=== PATIENT | female | born 1930 | race Caucasian/White ===

== ENCOUNTER 2018-08-06 07:33 | Inpatient (IN) ==
[2018-08-06] MEDS ORDERED: ACETAMINOPHEN 325 MG TABLET PO ONE (08:02)
--- NOTE | 2018-08-06 08:20 | XRay Report ---
INDICATION: Tachycardia. Fever. TECHNIQUE: AP chest x-ray,portable upright COMPARISON: Chest x-rays dated 11/18/2016, 08/19/2012, 07/04/2004 FINDINGS:Lungs are negative. No parenchymal infiltrate or mass. Heart size and vascularity are normal. No pulmonary edema. No pulmonary congestion. Geraldine and mediastinum are negative. There is no pleural fluid. There is calcification of the thoracic aorta. IMPRESSION: No acute abnormality Interpreted and Authenticated by: Kwame Gill 08/06/18
[2018-08-06] MEDS ORDERED: cefTRIAXone 1 GM VIAL IV ONE (08:22)
--- NOTE | 2018-08-06 08:31 | Emergency Department Note ---
Fever HPI - General Chief Complaint: Fever Stated Complaint: fever, nausea Time Seen by Provider: 08/06/18 08:14 Source: patient, EMS Mode of arrival: EMS Limitations: no limitations - History of Present Illness HPI Narrative: This 87-year-old female comes in because of fever and some pain in her abdomen. She had shaking during the night. Temperature checked at home this morning by family member, son and/or [id number] was 101.9. cutting machine tender helper got 102. When she arrived here was 99.2. Was given additional acetaminophen. She has some dysuria that began last evening. Some frequency but this is chronic as well as urgency that is also chronic with occasional incontinence. Has had some nausea and vomiting and mild diarrhea and constipation but no hematochezia. REVIEW OF SYSTEMS: No chest pain No cough or shortness of breath Has some chronic back pain. She reports falling 3 weeks ago due to a passing out and woke up and could not figure out why she was on the floor. She had some injury to her right knee at that time but was able to walk. No headache but some weakness and dizziness Some anxiety symptoms but no depression. Has some grief because of being a and this past year. Some chronic fatigue. - Related Data Home Medications Medication Instructions Recorded Confirmed Aspirin [Carolyn Chewable Aspirin] 81 mg PO DAILY 11/14/16 11/18/16 Isosorbide Mononitrate [Monoket] 20 mg PO DAILY 11/14/16 11/18/16 Levobunolol 0.5% Ophth Drops 1 gtt OU BID 11/14/16 11/18/16 [Betagan 0.5% Ophth Drops] Levothyroxine Sodium [Tirosint] 25 mcg PO DAILY 11/14/16 07/09/18 Sertraline HCl [Zoloft] 25 mg PO DAILY 11/14/16 07/09/18 amLODIPine BESYLATE [Amlodipine 10 mg PO DAILY 11/14/16 07/09/18 Besylate] traZODone HCL [Trazodone HCl] 25 mg PO DAILY 11/14/16 11/18/16 Acetaminophen [Tylenol] 650 mg PO Q4HP PRN 07/09/18 07/09/18 Calcium Phosphate Trib/Vit D3 1 tab CHEWED DAILY 07/09/18 07/09/18 [Calcium + Vitamin D3 Gummies] Cholecalciferol (Vitamin D3) 2,000 unit PO DAILY 07/09/18 07/09/18 [Vitamin D] Lisinopril [Zestril] 20 mg PO DAILY 07/09/18 07/09/18 Naproxen (Pp) [Aleve 220Mg (Pp)] 220 mg PO DAILY 07/09/18 07/09/18 Psyllium Husk [Metamucil] 0.52 gm PO DAILY 07/09/18 07/09/18 Warfarin [Coumadin] 1 mg PO DAILY 07/09/18 07/09/18 Allergies Allergy/AdvReac Type Severity Reaction Status Date / Time povidone-iodine Allergy Severe Hives Verified 08/06/18 07:39 ciprofloxacin [From CIPRO] Allergy Unknown UNKNOWN Verified 08/06/18 07:39 codeine Allergy Unknown Unknown Verified 08/06/18 07:39 Penicillins Allergy Unknown Unknown Verified 08/06/18 07:39 Sulfa (Sulfonamide Allergy Unknown Unknown Verified 08/06/18 07:39 Antibiotics) lorazepam [From ATIVAN] AdvReac Unknown "SLEEPY" Verified 08/06/18 07:39 meperidine [From DEMEROL] AdvReac Unknown "I GO NUTS" Verified 08/06/18 07:39 rofecoxib [From VIOXX] AdvReac Unknown "MY KIDNEY Verified 08/06/18 07:39 SHUT DOWN" Fever PMH - Past Medical History [facility] Narrative: Medical History (Last Updated 08/06/18 @ 08:36 by Angelito Shaikh DO) Allergy to multiple antibiotics (Chronic) Hypothyroidism, acquired (Chronic) Hypertension (Chronic) History of diverticulitis (Acute) Labile hypertension (Resolved) Urinary tract infection (Resolved) Past Surgical History (Last Updated 08/06/18 @ 08:37 by Angelito Shaikh DO) S/P bilateral cataract extraction (Acute) S/P lumbar fusion (Acute) Family History (Last Updated 08/06/18 @ 08:36 by Angelito Shaikh DO) Other CAD (coronary artery disease) CVA (cerebral vascular accident) DVT (deep venous thrombosis) Medical history: Reports: chronic anticoagulation, DVT, hyperlipidemia, hypertension, hypothyroidism, pulmonary embolus, other (DIVERTICULITIS. PEPTIC ULCER DISEASE. HEART MURMUR.). Denies: cancer, CVA, renal disease Surgical history ED: Reports: back surgery (Lumbar fusions x2) Psychiatric history: Reports: anxiety. Denies: depression Family history: Reports: other (DVTs, CVAs, CAD.) - Social History smoking status: Former smoker Alcohol use: Reports: None Drug use: Reports: none. Denies: marijuana Physical Exam Limitations: no limitations General appearance: alert, in no apparent distress Head: atraumatic, normocephalic Eye: Present: normal appearance, EOMI, other (Evidence of intraocular lens implant with reflection shimmering.). Absent: scleral icterus, conjunctival injection ENT: normal oropharynx, mucous membranes moist, other (Retains the majority of her own teeth.) Neck: Present: trachea midline. Absent: lymphadenopathy, thyromegaly Chest: Present: symmetric chest wall rise Respiratory: Present: normal lung sounds bilaterally. Absent: respiratory dis tress, wheezes, stridor, accessory muscle use, prolonged expiratory phase Cardiovascular: Present: regular rate, normal rhythm, systolic murmur. Absent: diastolic murmur Type of murmur: systolic Location of murmur: RUSB, LUSB, LLSB, other Intensity of murmur: 2/6 Pitch of murmur: Medium Abdominal: Present: soft, tenderness. Absent: distention, guarding, rebound, rigidity, organomegaly, mass Abdominal tenderness: Present: RUQ (With mild splinting) Extremities: Present: other (Moderate to large ecchymoses along most of the right lower leg without major warmth or erythema or swelling.). Absent: pedal edema, pretibial edema, calf tenderness Back: Absent: CVA tenderness (R), CVA tenderness (L), spinous process tenderness Neurological: Present: alert, oriented X3 Psychiatric: Present: normal affect, normal mood Skin: Present: warm, dry Course Vital Signs Temperature 99.2 F H 08/06/18 07:35 Pulse Rate 122 H 08/06/18 07:35 Respiratory Rate 20 08/06/18 07:35 Blood Pressure 134/57 08/06/18 07:35 Pulse Oximetry (%) 92 08/06/18 07:35 Temperature 98.4 F 08/06/18 09:54 Pulse Rate 111 H 08/06/18 10:01 Respiratory Rate 24 H 06/25/19 10:01 Blood Pressure 110/47 08/06/18 10:01 Pulse Oximetry (%) 92 08/06/18 10:01 Fever - MDM Narrative Medical decision making narrative: 8:23 AM - meets sirs criteria with tachycardia and fever and abdominal pain. Multiple labs. Antibiotics were not available after cultures. These have already been obtained and so Rocephin ordered. She has multiple allergies to antibiotics. She has some right upper quadrant pain with a history of abdominal pain when she came in such that we will go ahead with CT scan of abdomen and pelvis. Labs include white count 5.0. Lactic acid comes back elevated at 3.0. Creatinine is 1.2. CT scan demonstrates mildly dilated gallbladder with some stones and ultrasound was recommended. This has been ordered. 11:05 AM - initial labs did not include an INR. She is on warfarin presumably due to history of multiple DVTs and PEs. INR added. 11:05 AM - patient's care is being assumed by Dr. Angulo because of change in shift. Ultrasound pending. Patient had a recent desaturation and weakness and hypotension related to getting up just to go to the bathroom and did not feel well. Additional fluids were ordered by Dr. Angulo. - Lab Data Lab results reviewed: Yes I reviewed the patient's lab results. Result diagrams: 08/06/18 07:50 08/06/18 07:50 Lab Results 08/06/18 08/06/18 08/06/18 Range/Units 07:50 07:50 07:50 WBC 6.0 (4.5-11.0) K/mcL RBC 3.83 L (4.00-5.20) M/mcL Hgb 12.2 (12.0-15.0) g/dL Hct 36.3 (36.0-48.0) % MCV 94.8 (80.0-100.0) fL MCH 31.9 (26.0-34.0) pg MCHC 33.7 (31.0-36.0) g/dL RDW 14.1 (11.5-14.5) % Plt Count 225 (140-440) K/mcL MPV 7.4 (7.4-10.4) fL Total Counted 100 Seg Neutrophils % 88 H (38-78) % Band Neutrophils % 7 (0-10) % Lymphocytes % 3 L (15-49) % Monocytes % (Manual) 2 (1-12) % Platelet Estimate Normal (NORMAL) RBC Morphology Normal (NORMAL) VBG Lactic Acid 3.0 H (0.5-2.0) mmol/L Sodium 137 (133-145) mmol/L Potassium 4.3 (3.3-5.1) mmol/L Chloride 103 (96-108) mmol/L Carbon Dioxide 21 L (22-30) mmol/L Anion Gap 13.0 (8-16) BUN 30 H (8-23) mg/dl Creatinine 1.2 H (0.6-1.1) mg/dl GFR Calculation 40 Glucose 86 (70-105) mg/dL Calcium 8.6 (8.6-10.4) mg/dl Total Bilirubin 0.7 (0.0-1.0) mg/dL AST 31 (0-37) U/l ALT 28 (0-40) U/l Alkaline Phosphatase 64 (39-117) U/L Total Protein 6.0 (5.9-8.4) gm/dL Albumin 3.4 (3.2-5.2) gm/dL Globulin 2.6 (2.2-3.7) gm/dL Albumin/Globulin Ratio 1.3 (1.0-2.3) Urine Color Urine Appearance Urine pH (5.0-9.0) Ur Specific [place] (1.000-1.035) Urine Protein (NEG) mg/dL Urine Glucose (UA) (NEG) mg/dL Urine Ketones (NEG) mg/dL Urine Occult Blood (<0.03) mg/dL Urine Nitrate (NEG) Urine Bilirubin (NEG) mg/dL Urine Urobilinogen (NEG) mg/dL Ur Leukocyte Esterase (NEG) /uL Urine RBC (0-1) /hpf Urine WBC (0-4) /hpf Ur Squamous Epith Cells (0-4) /hpf Urine Bacteria (0) /hpf Urine Mucus (0) /hpf Ur Culture Indicated? 08/06/18 Range/Units 07:50 WBC (4.5-11.0) K/mcL RBC (4.00-5.20) M/mcL Hgb (12.0-15.0) g/dL Hct (36.0-48.0) % MCV (80.0-100.0) fL MCH (26.0-34.0) pg MCHC (31.0-36.0) g/dL RDW (11.5-14.5) % Plt Count (140-440) K/mcL MPV (7.4-10.4) fL Total Counted Seg Neutrophils % (38-78) % Band Neutrophils % (0-10) % Lymphocytes % (15-49) % Monocytes % (Manual) (1-12) % Platelet Estimate (NORMAL) RBC Morphology (NORMAL) VBG Lactic Acid (0.5-2.0) mmol/L Sodium (133-145) mmol/L Potassium (3.3-5.1) mmol/L Chloride (96-108) mmol/L Carbon Dioxide (22-30) mmol/L Anion Gap (8-16) BUN (8-23) mg/dl Creatinine (0.6-1.1) mg/dl GFR Calculation Glucose (70-105) mg/dL Calcium (8.6-10.4) mg/dl Total Bilirubin (0.0-1.0) mg/dL AST (0-37) U/l ALT (0-40) U/l Alkaline Phosphatase (39-117) U/L Total Protein (5.9-8.4) gm/dL Albumin (3.2-5.2) gm/dL Globulin (2.2-3.7) gm/dL Albumin/Globulin Ratio (1.0-2.3) Urine Color Yellow Urine Appearance Clear Urine pH 6.0 (5.0-9.0) Ur Specific [place] 1.011 (1.000-1.035) Urine Protein 100 A (NEG) mg/dL Urine Glucose (UA) Negative (NEG) mg/dL Urine Ketones Neg (NEG) mg/dL Urine Occult Blood 0.2 A (<0.03) mg/dL Urine Nitrate Neg (NEG) Urine Bilirubin Neg (NEG) mg/dL Urine Urobilinogen Neg (NEG) mg/dL Ur Leukocyte Esterase Neg (NEG) /uL Urine RBC 40 H (0-1) /hpf Urine WBC 6 H (0-4) /hpf Ur Squamous Epith Cells < 1 (0-4) /hpf Urine Bacteria 0 (0) /hpf Urine Mucus Few (0) /hpf Ur Culture Indicated? No - Radiology Data Radiology results reviewed: Yes I reviewed the patient's radiology results. - EKG Data EKG results narrative: No acute coronary syndrome findings. Sinus tachycardia. Possible left atrial enlargement. This ECG will be read by a endless belt finisher. Disposition Pt seen by RESIDENT CARE COORDINATOR/PA only: No Clinical Impression: Sinus tachycardia, Allergy to multiple antibiotics, Chronic anticoagulation Fever Qualifiers: Fever type: due to other condition Qualified Code(s): R50.81 - Fever presenting with conditions classified elsewhere Abdominal pain Qualifiers: Abdominal location: right upper quadrant Qualified Code(s): R10.11 - Right upper quadrant pain Summary: See MEDICAL DECISION MAKING above. Disposition: Still a Patient Condition: Undetermined Referrals: Baltazar Marcum MD [Primary Care Provider] -
[2018-08-06] MEDS ORDERED: 0.9 % SODIUM CHLORIDE 1,000 ML IV ONE ×2 (08:32→11:03)
[2018-08-06 08:57] LABS: Hematocrit 36.3 % (36.0-48.0); Hemoglobin 12.2 g/dL (12.0-15.0); Mean Cell Volume 94.8 fL (80.0-100.0); Mean Corpuscular HGB Conc 33.7 g/dL (31.0-36.0); Mean Platelet Volume 7.4 fL (7.4-10.4); Platelet Count 225 K/mcL (140-440); RBC 3.83 M/mcL (4.00-5.20); Red Cell Distribution Width 14.1 % (11.5-14.5)
[2018-08-06 09:00] LABS: Appearance,Urine CLEAR; Bacteria,Urine 0 /hpf (0); Bilirubin,Urine NEG (NEG); Color,Urine YELLOW; Culture Indicated,Urine NO; Glucose,Urine (UA) NEGATIVE (NEG); Ketones,Urine NEG (NEG); Leukocyte Esterase,Urine NEG /uL (NEG); Mucus,Urine FEW /hpf (0); Nitrate,Urine NEG (NEG); Protein,Urine 100 mg/dL (NEG); Specific Gravity,Urine 1.011 (1.000-1.035); Urine Blood 0.2 mg/dL (<0.03); Urine RBC 40 /hpf (0-1); Urine Squamous Epithelial Cell < 1 /hpf (0-4); Urine WBC 6 /hpf (0-4); Urobilinogen,Urine NEG (NEG)
[2018-08-06 09:15] LABS: ALT/SGPT 28 U/l (0-40); AST/SGOT 31 U/l (0-37); Albumin 3.4 gm/dL (3.2-5.2); Albumin/Globulin Ratio 1.3 (1.0-2.3); Alkaline Phosphatase 64 U/L (39-117); Bilirubin,Total 0.7 mg/dL (0.0-1.0); Blood Urea Nitrogen 30 mg/dl (8-23); Calcium 8.6 mg/dl (8.6-10.4); Carbon Dioxide 21 mmol/L (22-30); Chloride 103 mmol/L (96-108); Globulin 2.6 gm/dL (2.2-3.7); Glomerular Filtration Rate 40; Glucose 86 mg/dL (70-105); Potassium 4.3 mmol/L (3.3-5.1); Sodium 137 mmol/L (133-145)
[2018-08-06 09:26] LABS: Band Neutrophils % 7 % (0-10); Lymphocytes % 3 % (15-49); Monocytes % (Manual) 2 % (1-12); Platelet Estimate NORMAL (NORMAL); RBC Morphology NORMAL (NORMAL); Segmented Neutrophils % 88 % (38-78)
--- NOTE | 2018-08-06 10:36 | Cat Scan Report ---
CLINICAL INFORMATION: Fever. Nausea. History of diverticulitis. COMPARISON: None. TECHNIQUE: Axial images were obtained through the abdomen and pelvis. Sagittally and coronally reformatted images. FINDINGS: Lung bases are negative. No parenchymal consolidation. No focal infiltrate or mass. There is no pleural fluid. There is no pericardial fluid. There is a small hiatal hernia. Liver is negative to the limits of noncontrast enhanced examination. No focal mass. Liver contour is smooth. Gallbladder is mildly distended. No definite gallbladder wall thickening or pericholecystic inflammatory change or fluid. There is probable cholelithiasis with a small calcified stone or stones. No dilated bile ducts. Spleen is negative. There is no splenomegaly. Pancreas is negative. No pancreatic mass. No peripancreatic abnormality. Left adrenal gland is somewhat convex without well-defined mass. There are probable hyperdense cysts in both kidneys. There are calcifications in the left kidney. These are probably vascular although nonobstructing mid pole stones are likely. There is no significant hydronephrosis. No evidence for solid mass. There is mild infiltration of the perirenal fat bilaterally. This is probably chronic. There is no perinephric abscess or acute fluid collection. There is no bladder calculus. There is diverticulosis. No evidence for diverticulitis. There is no focal colonic mass identified. No evidence for appendicitis. There is contrast material within small bowel. No mechanical small bowel obstruction. Uterus is not identified and has probably been removed. No adnexal abnormality. There is no free pelvic fluid. No pelvic abscess. There is no pneumoperitoneum. No biliary or portal venous gas. No lumbar compression fractures. There is multilevel degenerative disc disease. Patient has also undergone previous posterior spinal fusion. No sacral insufficiency fracture. Pelvis is negative. There is no fracture. There are multiple calcifications in the soft tissues of the gluteal regions bilaterally, right worse than left. These may be related to injections. There is extensive atherosclerotic calcification of the abdominal aorta. No infrarenal abdominal aortic aneurysm. IMPRESSION: 1. Mildly distended gallbladder and probable cholelithiasis. Gallbladder ultrasound may be helpful. 2. Left renal calcifications may be probably vascular. Nonobstructing calculi are suspected. There are hyperdense probable cyst. No hydronephrosis. 3. Extensive atherosclerotic disease 4. Diverticulosis without evidence for diverticulitis. No intra-abdominal abscess The exam was performed using radiation dose optimization techniques including, but not limited to, automated exposure control, adjustment of the mA and/or kV according to patient size and use of iterative reconstruction technique. Interpreted and Authenticated by: Kwame Gill 08/06/18
[2018-08-06 11:45] LABS: INR 2.9 (0.9-1.1); Prothrombin Time 30.2 sec (11.9-14.5)
--- NOTE | 2018-08-06 12:19 | Ultrasound Report ---
CLINICAL INFORMATION: Right upper quadrant pain TECHNIQUE: Grayscale and color flow Doppler spectral imaging COMPARISON: CT scan dated 08/06/2018 FINDINGS: There is biliary sludge and 2 probable gallstones. Gallstones measure 12 x 11 x 3 mm and 7 x 5 x 11 mm. No gallbladder wall thickening. No pericholecystic fluid. There is no positive Zamudio sign. No dilated bile ducts. No intrahepatic bile duct dilatation. Common bile duct measures 7 mm maximally that tapers. No detectable choledocholithiasis. Liver is negative. No focal hepatic mass. Liver contour is smooth. There is no ascites. Visualized portions of pancreas are negative IMPRESSION: 1. Small amount of biliary sludge and 2 mobile gallstones 2. No other abnormality Interpreted and Authenticated by: Kwame Gill 08/06/18
--- NOTE | 2018-08-06 13:01 | Emergency Department Note ---
General Adult HPI - General Chief complaint: Fever Stated complaint: fever, nausea Time Seen by Provider: 08/06/18 08:14 Source: patient, EMS Mode of arrival: EMS Limitations: no limitations - History of Present Illness HPI Narrative: Patient is checked out to me by Dr. Shaikh, outgoing ER doc at shift change. I reviewed his notes and studies available to me at that time - Related Data Home Medications Medication Instructions Recorded Confirmed Isosorbide Mononitrate [Monoket] 20 mg PO DAILY 11/14/16 11/18/16 Levothyroxine Sodium [Tirosint] 25 mcg PO DAILY 11/14/16 07/09/18 Sertraline HCl [Zoloft] 50 mg PO DAILY 11/14/16 07/09/18 Lisinopril [Zestril] 10 mg PO DAILY 07/09/18 07/09/18 Naproxen (Pp) [Aleve 220Mg (Pp)] 220 mg PO DAILY 07/09/18 07/09/18 Psyllium Husk [Metamucil] 2 cap PO DAILY 07/09/18 07/09/18 Warfarin [Coumadin] 6 mg PO DAILY 07/09/18 07/09/18 Acetaminophen [Tylenol Arthritis] 650 mg PO BID 08/06/18 08/06/18 Denosumab [Prolia] 60 mg SQ 08/06/18 Metoprolol Succinate 25 mg PO DAILY 08/06/18 08/06/18 Multivitamin [One Daily 1 each PO DAILY 08/06/18 08/06/18 Multivitamin] Netarsudil Mesylate [Rhopressa] 2.5 ml OP DAILY 08/06/18 08/06/18 Warfarin [Coumadin] 1 mg PO WEEKLY 08/06/18 08/06/18 amLODIPine BESYLATE [Norvasc] 10 mg PO DAILY 08/06/18 08/06/18 traZODone HCL [Trazodone HCl] 25 mg PO HSP PRN 08/06/18 08/06/18 Allergies Allergy/AdvReac Type Severity Reaction Status Date / Time povidone-iodine Allergy Severe Hives Verified 08/06/18 07:39 ciprofloxacin [From CIPRO] Allergy Unknown UNKNOWN Verified 08/06/18 07:39 codeine Allergy Unknown Unknown Verified 08/06/18 07:39 Penicillins Allergy Unknown Unknown Verified 08/06/18 07:39 Sulfa (Sulfonamide Allergy Unknown Unknown Verified 08/06/18 07:39 Antibiotics) lorazepam [From ATIVAN] AdvReac Unknown "SLEEPY" Verified 08/06/18 07:39 meperidine [From DEMEROL] AdvReac Unknown "I GO NUTS" Verified 08/06/18 07:39 rofecoxib [From VIOXX] AdvReac Unknown "MY KIDNEY Verified 08/06/18 07:39 SHUT DOWN" Past Medical History - Past Medical History Medical history: Reports: chronic anticoagulation, DVT, hyperlipidemia, hypertension, hypothyroidism, pulmonary embolus, other (DIVERTICULITIS. PEPTIC ULCER DISEASE. HEART MURMUR.). Denies: cancer, CVA, renal disease Psychiatric history: Reports: anxiety. Denies: depression Surgical history ED: Reports: back surgery (Lumbar fusions x2) - Social History smoking status: Former smoker Alcohol use: Reports: None Drug use: Reports: none. Denies: marijuana Physical Exam Limitations: no limitations General appearance: alert, in no apparent distress Course Vital Signs Temperature 99.2 F H 08/06/18 07:35 Pulse Rate 122 H 08/06/18 07:35 Respiratory Rate 20 08/06/18 07:35 Blood Pressure 134/57 08/06/18 07:35 Pulse Oximetry (%) 92 08/06/18 07:35 Temperature 101.8 F H 08/06/18 11:00 Pulse Rate 102 H 08/06/18 12:31 Respiratory Rate 24 H 08/06/18 12:31 Blood Pressure 95/45 08/06/18 12:31 Pulse Oximetry (%) 92 08/06/18 12:31 Medical Decision Making - Lab Data Lab results reviewed: Yes I reviewed the patient's lab results. Result diagrams: 08/06/18 07:50 08/06/18 07:50 Lab Results 08/06/18 08/06/18 08/06/18 Range/Units 07:50 07:50 07:50 WBC 6.0 (4.5-11.0) K/mcL RBC 3.83 L (4.00-5.20) M/mcL Hgb 12.2 (12.0-15.0) g/dL Hct 36.3 (36.0-48.0) % MCV 94.8 (80.0-100.0) fL MCH 31.9 (26.0-34.0) pg MCHC 33.7 (31.0-36.0) g/dL RDW 14.1 (11.5-14.5) % Plt Count 225 (140-440) K/mcL MPV 7.4 (7.4-10.4) fL Total Counted 100 Seg Neutrophils % 88 H (38-78) % Band Neutrophils % 7 (0-10) % Lymphocytes % 3 L (15-49) % Monocytes % (Manual) 2 (1-12) % Platelet Estimate Normal (NORMAL) RBC Morphology Normal (NORMAL) PT (11.9-14.5) sec INR (0.9-1.1) VBG Lactic Acid 3.0 H (0.5-2.0) mmol/L Sodium 137 (133-145) mmol/L Potassium 4.3 (3.3-5.1) mmol/L Chloride 103 (96-108) mmol/L Carbon Dioxide 21 L (22-30) mmol/L Anion Gap 13.0 (8-16) BUN 30 H (8-23) mg/dl Creatinine 1.2 H (0.6-1.1) mg/dl GFR Calculation 40 Glucose 86 (70-105) mg/dL Calcium 8.6 (8.6-10.4) mg/dl Total Bilirubin 0.7 (0.0-1.0) mg/dL AST 31 (0-37) U/l ALT 28 (0-40) U/l Alkaline Phosphatase 64 (39-117) U/L Total Protein 6.0 (5.9-8.4) gm/dL Albumin 3.4 (3.2-5.2) gm/dL Globulin 2.6 (2.2-3.7) gm/dL Albumin/Globulin Ratio 1.3 (1.0-2.3) Urine Color Urine Appearance Urine pH (5.0-9.0) Ur Specific [place] (1.000-1.035) Urine Protein (NEG) mg/dL Urine Glucose (UA) (NEG) mg/dL Urine Ketones (NEG) mg/dL Urine Occult Blood (<0.03) mg/dL Urine Nitrate (NEG) Urine Bilirubin (NEG) mg/dL Urine Urobilinogen (NEG) mg/dL Ur Leukocyte Esterase (NEG) /uL Urine RBC (0-1) /hpf Urine WBC (0-4) /hpf Ur Squamous Epith Cells (0-4) /hpf Urine Bacteria (0) /hpf Urine Mucus (0) /hpf Ur Culture Indicated? 08/06/18 08/06/18 Range/Units 07:50 07:50 WBC (4.5-11.0) K/mcL RBC (4.00-5.20) M/mcL Hgb (12.0-15.0) g/dL Hct (36.0-48.0) % MCV (80.0-100.0) fL MCH (26.0-34.0) pg MCHC (31.0-36.0) g/dL RDW (11.5-14.5) % Plt Count (140-440) K/mcL MPV (7.4-10.4) fL Total Counted Seg Neutrophils % (38-78) % Band Neutrophils % (0-10) % Lymphocytes % (15-49) % Monocytes % (Manual) (1-12) % Platelet Estimate (NORMAL) RBC Morphology (NORMAL) PT 30.2 H (11.9-14.5) sec INR 2.9 H (0.9-1.1) VBG Lactic Acid (0.5-2.0) mmol/L Sodium (133-145) mmol/L Potassium (3.3-5.1) mmol/L Chloride (96-108) mmol/L Carbon Dioxide (22-30) mmol/L Anion Gap (8-16) BUN (8-23) mg/dl Creatinine (0.6-1.1) mg/dl GFR Calculation Glucose (70-105) mg/dL Calcium (8.6-10.4) mg/dl Total Bilirubin (0.0-1.0) mg/dL AST (0-37) U/l ALT (0-40) U/l Alkaline Phosphatase (39-117) U/L Total Protein (5.9-8.4) gm/dL Albumin (3.2-5.2) gm/dL Globulin (2.2-3.7) gm/dL Albumin/Globulin Ratio (1.0-2.3) Urine Color Yellow Urine Appearance Clear Urine pH 6.0 (5.0-9.0) Ur Specific [place] 1.011 (1.000-1.035) Urine Protein 100 A (NEG) mg/dL Urine Glucose (UA) Negative (NEG) mg/dL Urine Ketones Neg (NEG) mg/dL Urine Occult Blood 0.2 A (<0.03) mg/dL Urine Nitrate Neg (NEG) Urine Bilirubin Neg (NEG) mg/dL Urine Urobilinogen Neg (NEG) mg/dL Ur Leukocyte Esterase Neg (NEG) /uL Urine RBC 40 H (0-1) /hpf Urine WBC 6 H (0-4) /hpf Ur Squamous Epith Cells < 1 (0-4) /hpf Urine Bacteria 0 (0) /hpf Urine Mucus Few (0) /hpf Ur Culture Indicated? No - Radiology Data Radiology results reviewed: Yes I reviewed the patient's radiology results. Ultrasound shows several gallstones but no thickened gallbladder wall or dilated common bile duct-there is no evidence of cholecystitis at this time CT scan shows no evidence of diverticulitis or other concerning feature to explain her abdominal pain - EKG Data EKG #1 EKG attestation: Yes I reviewed and interpreted this EKG. EKG results narrative: Sinus tachycardia without evidence of ischemia is noted Disposition Pt seen by ENGLISH HORN PLAYER/PA only: No Clinical Impression: Sinus tachycardia, Allergy to multiple antibiotics, Chronic anticoagulation Abdominal pain Qualifiers: Abdominal location: right upper quadrant Qualified Code(s): R10.11 - Right upper quadrant pain Sepsis Qualifiers: Sepsis type: sepsis due to unspecified organism Qualified Code(s): A41.9 - Sepsis, unspecified organism UTI (urinary tract infection) Qualifiers: Urinary tract infection type: acute cystitis Hematuria presence: with hematuria Qualified Code(s): N30.01 - Acute cystitis with hematuria Summary: After receiving patient in checkout I discussed with nursing staff. Patient does meet sepsis criteria with borderline hypotension requiring fluid resuscitation, febrile and sinus tachycardia. She had already had blood cultures and Rocephin started She ended up getting 3 bags of normal saline to get her blood pressure in the low normal range After getting her studies back-that is ultrasound and CT scan-I discussed case with Dr. Haley, our hospitalist, who agreed to accept the patient for further care and evaluation in the hospital. I also took the time to discuss this with the patient and her family. Disposition: Xfer As Inpt ([facility]) Condition: Critical Referrals: Baltazar Marcum MD [Primary Care Provider] -
--- NOTE | 2018-08-06 13:23 | Internal Med History&Physical ---
Medical - H&P: [facility] Patient information: Note initiated : 08/06/18 at 1:19 pm Service Date, if different from initiated Date: [] Patient: Sadi Her 87 y/o F admitted on for fever, nausea. Chief Complaint: [] History of present illness: Ms. Her is a 87 year old F Who presents the ED with shaking fever chills during the night vague abdominal discomfort. Patient states that over the past 3 weeks especially yesterday she had become more weak and developed fevers with shaking chills. She had some nausea. She has some abdominal achy discomfort, not pain per the patient, in the upper quadrants. States she fell about 3 weeks ago onto her right knee Denies any sick contacts denies any respiratory complaints denies any diarrhea other than one episode in the ED, her bowel vomit earlier this morning was soft to firm. She does complain of dysuria. In the ED she was tachycardic and tachypneic and developed hypotension when she got up to go the bathroom. She was febrile. No respiratory issues and chest x- ray was okay. Abdominal injury imaging including CT abdomen pelvis and ultrasound showed some gallstones but no cholecystitis and no other abdominal pathology that was acute. She is given 3 L of IV fluid between EMS in the ED. Last blood pressure is 111/46. The lowest was 84/41. She denies any ulcers or wounds on her skin. Review of Systems: Pertinent positives as above. Denies headache/vomiting/chest pain/cough/dyspnea/diarrhea. Many 10 point review of system reviewed negative Medical - H&P: PM Medical history: Medical History (Last Updated 08/06/18 @ 09:34 by Angelito Shaikh DO) Chronic anticoagulation (Acute) Allergy to multiple antibiotics (Chronic) Hypothyroidism, acquired (Chronic) Hypertension (Chronic) History of diverticulitis (Acute) Labile hypertension (Resolved) Urinary tract infection (Resolved) Past Surgical History (Last Updated 08/06/18 @ 08:37 by Angelito Shaikh DO) S/P bilateral cataract extraction (Acute) S/P lumbar fusion (Acute) Family History (Last Updated 08/06/18 @ 08:36 by Angelito Shaikh DO) Other CAD (coronary artery disease) CVA (cerebral vascular accident) DVT (deep venous thrombosis) Social History Patient quit smoking in 1991, does not drink alcohol, uses a walker to ambulate, lives by herself Medical - H&P: Meds Home Medications Medication Instructions Recorded Confirmed Type Isosorbide Mononitrate [Monoket] 20 mg PO DAILY 11/14/16 08/06/18 History Levothyroxine Sodium [Tirosint] 25 mcg PO DAILY 11/14/16 08/06/18 History Sertraline HCl [Zoloft] 50 mg PO DAILY 11/14/16 08/06/18 History Lisinopril [Zestril] 10 mg PO DAILY 07/09/18 08/06/18 History Naproxen (Pp) [Aleve 220Mg (Pp)] 220 mg PO DAILY 07/09/18 08/06/18 History Psyllium Husk [Metamucil] 2 cap PO DAILY 07/09/18 08/06/18 History Warfarin [Coumadin] 6 mg PO DAILY 07/09/18 08/06/18 History Acetaminophen [Tylenol Arthritis] 650 mg PO BID 08/06/18 08/06/18 History Denosumab [Prolia] 60 mg SQ UD 08/06/18 08/06/18 History Metoprolol Succinate 25 mg PO DAILY 08/06/18 08/06/18 History Multivitamin [One Daily 1 each PO DAILY 08/06/18 08/06/18 History Multivitamin] Netarsudil Mesylate [Rhopressa] 2.5 ml OP HS 08/06/18 08/06/18 History Warfarin [Coumadin] 1 mg PO WEEKLY 08/06/18 08/06/18 History amLODIPine BESYLATE [Norvasc] 10 mg PO DAILY 08/06/18 08/06/18 History traZODone HCL [Trazodone HCl] 25 mg PO HSP PRN 08/06/18 08/06/18 History Allergies Allergy/AdvReac Type Severity Reaction Status Date / Time povidone-iodine Allergy Severe Hives Verified 08/06/18 07:39 ciprofloxacin [From CIPRO] Allergy Unknown UNKNOWN Verified 08/06/18 07:39 codeine Allergy Unknown Unknown Verified 08/06/18 07:39 Penicillins Allergy Unknown Unknown Verified 08/06/18 07:39 Sulfa (Sulfonamide Allergy Unknown Unknown Verified 08/06/18 07:39 Antibiotics) lorazepam [From ATIVAN] AdvReac Unknown "SLEEPY" Verified 08/06/18 07:39 meperidine [From DEMEROL] AdvReac Unknown "I GO NUTS" Verified 08/06/18 07:39 rofecoxib [From VIOXX] AdvReac Unknown "MY KIDNEY Verified 08/06/18 07:39 SHUT DOWN" Medical - H&P: Exam - Constitutional Vitals: Temp Pulse Resp BP Pulse Ox 101.8 F H 108 H 18 111/46 95 08/06/18 11:00 08/06/18 12:46 08/06/18 12:46 08/06/18 12:46 08/06/18 12:46 Exam: General: Alert, Awake, No acute Distress Eyes/N/T: EOMI, PEERL, DMM Head/Neck: neck supple, normocephalic atraumatic CV: Mildly tacky but regular, No murmurs, Pulm: Clear b/l, no wheezing/rhonchi/rales Abd: soft, nontender, +BS x4 Ext: no clubbing/cyanosis/edema Neuro: Alert, no focal deficits, moves all extremities, CN 2-12 grossly intact, symmetrical strength b/l upper/lower, sensations intact b/l upper/lower Skin: warm/dry Medical - H&P: Reslt - Labs CBC & Chem 7: 08/06/18 07:50 08/06/18 07:50 Labs: Short CBC 08/06/18 Range/Units 07:50 WBC 6.0 (4.5-11.0) K/mcL Hgb 12.2 (12.0-15.0) g/dL Hct 36.3 (36.0-48.0) % Plt Count 225 (140-440) K/mcL BMP 08/06/18 07:50 Sodium 137 Potassium 4.3 Chloride 103 Carbon Dioxide 21 L BUN 30 H Creatinine 1.2 H Glucose 86 Calcium 8.6 Liver Function 08/06/18 Range/Units 07:50 Total Bilirubin 0.7 (0.0-1.0) mg/dL AST 31 (0-37) U/l ALT 28 (0-40) U/l Alkaline Phosphatase 64 (39-117) U/L Albumin 3.4 (3.2-5.2) gm/dL Urine 06/25/19 Range/Units 07:50 Urine Color Yellow Urine Appearance Clear Urine pH 6.0 (5.0-9.0) Ur Specific [place] 1.011 (1.000-1.035) Urine Protein 100 A (NEG) mg/dL Urine Glucose (UA) Negative (NEG) mg/dL - Impressions CT abdomen pelvis and ultrasound showed gallstones but no cholecystitis no other abdominal pathology. 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
[2018-08-06] MEDS ORDERED: ONDANSETRON 4 MG/2 ML VIAL IV PRN (14:27)
[2018-08-06] MEDS ORDERED: MAGNESIUM SULFATE 2 GM/50 ML BAG IV PRN (14:27)
[2018-08-06] MEDS ORDERED: WARFARIN 1 MG TABLET PO SCH (14:27)
[2018-08-06] MEDS ORDERED: IPRATROPIUM/ALBUTEROL 3 ML AMPUL.NEB NEB PRN (14:27)
[2018-08-06] MEDS ORDERED: LACTULOSE 20 GM/30 ML ORAL.SOL PO PRN (14:27)
[2018-08-06] MEDS ORDERED: POTASSIUM CHLORIDE 40 MEQ in DEXTROSE 5% IN WATER 500 ML IV PRN (14:27)
[2018-08-06] MEDS ORDERED: SENNOSIDES 1 TABLET PO PRN (14:27)
[2018-08-06] MEDS ORDERED: POTASSIUM CHLORIDE 20 MEQ TABLET PO PRN ×2 (14:27)
[2018-08-06] MEDS ORDERED: POLYETHYLENE GLYCOL 3350 17 GM PACKET PO PRN (14:27)
[2018-08-06] MEDS ORDERED: METOCLOPRAMIDE 10 MG/2 ML VIAL IV PRN (14:27)
[2018-08-06] MEDS ORDERED: WARFARIN 4 MG TABLET PO ONE (15:00)
[2018-08-06] MEDS: CEFEPIME 2 GM VIAL IV SCH ×2 (15:44→23:47)
[2018-08-06] MEDS: 0.9 % SODIUM CHLORIDE 10 ML SYRINGE IV SCH ×2 (15:45→23:48)
[2018-08-06] MEDS: ACETAMINOPHEN 325 MG TABLET PO PRN (17:18)
[2018-08-06] MEDS ORDERED: SERTRALINE 50 MG TABLET PO STA (18:38)
[2018-08-06] MEDS: DOCUSATE SODIUM 100 MG CAPSULE PO SCH (19:23)
[2018-08-07] MEDS: 0.9 % SODIUM CHLORIDE 10 ML SYRINGE IV SCH ×3 (04:12→21:28)
[2018-08-07 06:03] LABS: Hematocrit 33.9 % (36.0-48.0); Hemoglobin 11.3 g/dL (12.0-15.0); Mean Cell Volume 96.3 fL (80.0-100.0); Mean Corpuscular HGB Conc 33.3 g/dL (31.0-36.0); Mean Platelet Volume 7.9 fL (7.4-10.4); Platelet Count 203 K/mcL (140-440); RBC 3.52 M/mcL (4.00-5.20); Red Cell Distribution Width 14.1 % (11.5-14.5)
[2018-08-07 06:14] LABS: INR 2.9 (0.9-1.1); Prothrombin Time 29.9 sec (11.9-14.5)
[2018-08-07 06:42] LABS: ALT/SGPT 23 U/l (0-40); AST/SGOT 35 U/l (0-37); Albumin 3.2 gm/dL (3.2-5.2); Albumin/Globulin Ratio 1.2 (1.0-2.3); Alkaline Phosphatase 39 U/L (39-117); Bilirubin,Direct < 0.2 mg/dL (0.0-0.3); Bilirubin,Total 0.4 mg/dL (0.0-1.0); Blood Urea Nitrogen 31 mg/dl (8-23); Carbon Dioxide 19 mmol/L (22-30); Chloride 103 mmol/L (96-108); Globulin 2.7 gm/dL (2.2-3.7); Glomerular Filtration Rate 44; Glucose 81 mg/dL (70-105); Lactate Dehydrogenase 220 U/L (94-250); Magnesium 1.9 mg/dL (1.6-2.5); Phosphorous 2.4 mg/dL (2.7-4.5); Potassium 4.1 mmol/L (3.3-5.1); Sodium 137 mmol/L (133-145); Triglycerides 127 mg/dl (<150); Uric Acid 7.8 mg/dL (2.5-8.0)
[2018-08-07 06:43] LABS: C-Reactive Protein 31.9 mg/dl (0.0-0.8)
--- NOTE | 2018-08-07 07:11 | Internal Med Progress Note ---
Medical - PN: Subj Patient information: Note initiated : 08/07/18 at 7:03 am Service Date, if different from initiated Date: [] Patient: Sadi Her 87 y/o F admitted on 08/06/18 for fever, nausea. Chief Complaint: [] Interval history: Ms. Her is a 87 year old F Who presents the ED with shaking fever chills during the night vague abdominal discomfort. Patient states that over the past 3 weeks especially yesterday she had become more weak and developed fevers with shaking chills. She had some nausea. She has some abdominal achy discomfort, not pain per the patient, in the upper quadrants. States she fell about 3 weeks ago onto her right knee Denies any sick contacts denies any respiratory complaints denies any diarrhea other than one episode in the ED, her bowel vomit earlier this morning was soft to firm. She does complain of dysuria. In the ED she was tachycardic and tachypneic and developed hypotension when she got up to go the bathroom. She was febrile. No respiratory issues and chest x- ray was okay. Abdominal injury imaging including CT abdomen pelvis and ultrasound showed some gallstones but no cholecystitis and no other abdominal pathology that was acute. She is given 3 L of IV fluid between EMS in the ED. Last blood pressure is 111/46. The lowest was 84/41 after getting up to go to the bathroom. She denies any ulcers or wounds on her skin. 08/07 Feeling better. Slept well. No new complaints. No overnight events. Blood culture with gram negative bacillus and one blood draw. Review of Systems: denies headache/fever/chills/nausea/vomiting/chest or abdominal danielle n/cough/dyspnea/diarrhea. Otherwise see above. - Constitutional Vitals: Vital Signs Temp Pulse Resp BP Pulse Ox 97.6 F 89 20 149/56 95 08/07/18 04:00 08/07/18 04:00 08/07/18 04:00 08/07/18 04:00 08/07/18 04:00 Period Temp Pulse Resp BP Sys/Wiseman Pulse Ox Last 24 Hr 97.6 F-101.8 F 80-122 16-27 84-149/40-66 91-96 Intake and Output 08/06/18 08/07/18 08/07/18 21:59 05:59 13:59 Intake Total 420 300 Output Total 900 250 Balance -480 50 Weight 78.613 kg Intake & Output: Intake & Output 08/06/18 08/07/18 08/07/18 21:59 05:59 13:59 Intake Total 420 300 Output Total 900 250 Balance -480 50 Weight 78.613 kg Intake: Oral 420 300 Output: Void Amount 750 150 Urine/Stool Mix 150 100 Other: Meal Dinner Percent of Meal Consumed 50% Feeding Ability Assist with Tray Set Up Urine Appearance Clear Urine Color Dark Yellow Dark Yellow Urine Odor Normal Stool Size Small Small Stool Color Brown Brown Stool Consistency Loose Soft Formed # Bowel Movements 1 Exam: General: Alert, Awake, No acute Distress Eyes/N/T: EOMI, Head/Neck: neck supple, CV: RRR, 1/6 SM Pulm: Clear b/l, no wheezing/rhonchi/rales Abd: soft, nontender, +BS x4 Ext: no clubbing/cyanosis/edema Neuro: Alert, no focal deficits, moves all extremities, Skin: warm/dry Medical - PN: Obj Da - Labs CBC & Chem 7: 08/07/18 04:00 08/07/18 04:00 Labs: Abnormal Lab Results 08/07/18 08/07/18 08/07/18 04:00 04:00 04:00 WBC RBC Hgb Hct Seg Neutrophils % Lymphocytes % PT 29.9 H INR 2.9 H VBG Lactic Acid Carbon Dioxide 19 L BUN 31 H Creatinine Calcium 8.0 L Phosphorus 2.4 L GGT 43 H C-Reactive Protein 31.9 H Urine Protein Urine Occult Blood Urine RBC Urine WBC 08/07/18 08/06/18 08/06/18 04:00 13:22 07:50 WBC 18.0 H RBC 3.52 L Hgb 11.3 L Hct 33.9 L Seg Neutrophils % Lymphocytes % PT 30.2 H INR 2.9 H VBG Lactic Acid Carbon Dioxide BUN Creatinine Calcium Phosphorus GGT C-Reactive Protein 17.1 H Urine Protein Urine Occult Blood Urine RBC Urine WBC 08/06/18 08/06/18 08/06/18 07:50 07:50 07:50 WBC RBC Hgb Hct Seg Neutrophils % Lymphocytes % PT INR VBG Lactic Acid 3.0 H Carbon Dioxide 21 L BUN 30 H Creatinine 1.2 H Calcium Phosphorus GGT C-Reactive Protein Urine Protein 100 A Urine Occult Blood 0.2 A Urine RBC 40 H Urine WBC 6 H 08/06/18 07:50 WBC RBC 3.83 L Hgb Hct Seg Neutrophils % 88 H Lymphocytes % 3 L PT INR VBG Lactic Acid Carbon Dioxide BUN Creatinine Calcium Phosphorus GGT C-Reactive Protein Urine Protein Urine Occult Blood Urine RBC Urine WBC Meds: Medications Acetaminophen (Tylenol) 650 mg PO Q6HP PRN PRN Reason: PAIN/FEVER > 101 Last Admin: 08/06/18 17:18 Dose: 650 mg Documented by: Albuterol/Ipratropium (Duoneb) 3 ml NEB Q4HP PRN PRN Reason: Shortness Of Breath Cefepime HCl (Maxipime) 2 gm IV Q12H [facility]; Protocol Last Admin: 08/06/18 23:47 Dose: 2 gm Documented by: Docusate Sodium (Colace) 100 mg PO BID [facility] Last Admin: 08/06/18 19:23 Dose: Not Given Documented by: Potassium Chloride 40 meq/ (Dextrose) 520 mls @ 130 mls/hr IV UD PRN PRN Reason: Potassium < 3 Magnesium Sulfate (Magnesium Sulfate) 2 gm in 50 mls @ 50 mls/hr IV UD PRN PRN Reason: Magnesium </= 1.6 Isosorbide Mononitrate (Monoket) 20 mg PO DAILY [facility] Lactulose (Cephulac) 10 gm PO DAILYP PRN PRN Reason: Constipation Levothyroxine Sodium (Synthroid) 25 mcg PO QAMAC [facility] Metoclopramide HCl (Reglan) 10 mg IV Q6HP PRN PRN Reason: Nausea And Vomiting Ondansetron HCl (Zofran) 4 mg IV Q4HP PRN PRN Reason: Nausea And Vomiting Netarsudil Mesylate ([Rhopressa] 2.5 Ml) 1 dose OU DAILY [facility] Polyethylene Glycol (Miralax) 17 gm PO DAILYP PRN PRN Reason: Constipation Potassium Chloride (Kdur) 40 meq PO UD PRN PRN Reason: Potassium is 3-3.5 Potassium Chloride (Kdur) 40 meq PO UD PRN PRN Reason: Potassium < 3 Senna (Senokot) 2 tab PO HSP PRN PRN Reason: Constipation Sertraline HCl (Zoloft) 50 mg PO DAILY [facility] Sodium Chloride (Saline Flush) 10 ml IV Q8 [facility] Last Admin: 08/07/18 04:12 Dose: 10 ml Documented by: Trazodone HCl (Desyrel) 25 mg PO HSP PRN PRN Reason: Sleep Warfarin Sodium (Coumadin Per Pharmacy) 1 order PO UD [facility] Medical - PN: A/P - Time Spent With Patient Total time spent is greater than 50% in coordination of care (as documented) at patient's floor/unit and/or counseling patient: - Narrative A/P Narrative: A: *Sepsis: ?Etiology, could be source given her dysuria however her urinalysis is not impressive by any means -lactate acidosis resolved; afebrile this morning *Bactermia (GNB) from 1 blood draw *Orthostatic hypotension: *Volume depletion: improving *Generalized weakness: *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
[2018-08-07 07:39] LABS: Band Neutrophils % 5 % (0-10); Lymphocytes % 10 % (15-49); Monocytes % (Manual) 3 % (1-12); Platelet Estimate NORMAL (NORMAL); RBC Morphology NORMAL (NORMAL); Segmented Neutrophils % 82 % (38-78)
[2018-08-07] MEDS: LEVOTHYROXINE 25 MCG TABLET PO SCH (08:19)
[2018-08-07] MEDS: metroNIDAZOLE 500 MG/100 ML BAG IV SCH ×3 (08:20→21:28)
[2018-08-07] MEDS: DOCUSATE SODIUM 100 MG CAPSULE PO SCH ×2 (08:20→21:28)
[2018-08-07] MEDS ORDERED: WARFARIN 1 MG TABLET PO SCH (09:00)
[2018-08-07] MEDS: ISOSORBIDE MONONITRATE 20 MG TABLET PO SCH (10:17)
[2018-08-07] MEDS: SERTRALINE 50 MG TABLET PO SCH (10:17)
[2018-08-07] MEDS: NETARSUDIL MESYLATE OU SCH (10:18)
[2018-08-07] MEDS: CEFEPIME 2 GM VIAL IV SCH ×2 (10:18→21:28)
[2018-08-07] MEDS: METOPROLOL SUCCINATE 25 MG TAB.XL.24H PO SCH (10:19)
[2018-08-07] MEDS ORDERED: WARFARIN 1 MG TABLET PO ONE (14:00)
[2018-08-07] MEDS: traZODone HCL 50 MG TABLET PO PRN (21:58)
[2018-08-08] MEDS: metroNIDAZOLE 500 MG/100 ML BAG IV SCH ×3 (05:49→21:40)
[2018-08-08] MEDS: 0.9 % SODIUM CHLORIDE 10 ML SYRINGE IV SCH ×3 (05:50→21:42)
[2018-08-08 06:14] LABS: INR 2.2 (0.9-1.1); Prothrombin Time 23.8 sec (11.9-14.5)
[2018-08-08] MEDS: LEVOTHYROXINE 25 MCG TABLET PO SCH (06:56)
--- NOTE | 2018-08-08 07:14 | Internal Med Progress Note ---
Medical - PN: Subj Patient information: Note initiated : 08/08/18 at 7:09 am Service Date, if different from initiated Date: [] Patient: Sadi Her 87 y/o F admitted on 08/06/18 for fever, nausea. Chief Complaint: [] Interval history: Ms. Her is a 87 year old F Who presents the ED with shaking fever chills during the night vague abdominal discomfort. Patient states that over the past 3 weeks especially yesterday she had become more weak and developed fevers with shaking chills. She had some nausea. She has some abdominal achy discomfort, not pain per the patient, in the upper quadrants. States she fell about 3 weeks ago onto her right knee Denies any sick contacts denies any respiratory complaints denies any diarrhea other than one episode in the ED, her bowel vomit earlier this morning was soft to firm. She does complain of dysuria. In the ED she was tachycardic and tachypneic and developed hypotension when she got up to go the bathroom. She was febrile. No respiratory issues and chest x- ray was okay. Abdominal injury imaging including CT abdomen pelvis and ultrasound showed some gallstones but no cholecystitis and no other abdominal pathology that was acute. She is given 3 L of IV fluid between EMS in the ED. Last blood pressure is 111/46. The lowest was 84/41 after getting up to go to the bathroom. She denies any ulcers or wounds on her skin. 08/07 Feeling better. Slept well. No new complaints. No overnight events. Blood culture with gram negative bacillus and one blood draw. 08/08 Doing well. No new complaints. No overnight events. Working well physical therapy Review of Systems: denies headache/fever/chills/nausea/vomiting/chest or abdominal pain/cough/d yspnea/diarrhea. Otherwise see above. - Constitutional Vitals: Vital Signs Temp Pulse Resp BP Pulse Ox 97.8 F 86 20 150/65 94 08/08/18 04:11 08/08/18 04:11 08/08/18 04:11 08/08/18 04:11 08/08/18 04:11 Period Temp Pulse Resp BP Sys/Wiseman Pulse Ox Last 24 Hr 97.3 F-98.3 F 80-92 18-22 136-158/58-69 92-96 Intake and Output 08/07/18 08/08/18 08/08/18 21:59 05:59 13:59 Intake Total 1710 220 Output Total 1000 625 250 Balance 710 -405 -250 Weight 78.018 kg Intake & Output: Intake & Output 08/07/18 08/08/18 08/08/18 21:59 05:59 13:59 Intake Total 1710 220 Output Total 1000 625 250 Balance 710 -405 -250 Weight 78.018 kg Intake: IV 100 100 Oral 1610 120 Output: Void Amount 1000 625 250 Other: Meal Dinner Percent of Meal Consumed 100% Feeding Ability Assist with Tray Set Up Urine Appearance Clear Clear Urine Color Bright Yellow Bright Yellow Bright Yellow Urine Odor Normal Normal Normal Stool Size Small Stool Color Brown Stool Consistency Soft Loose # Bowel Movements 1 Exam: General: Alert, Awake, No acute Distress Eyes/N/T: EOMI, Head/Neck: neck supple, CV: RRR, 1/6 SM Pulm: Clear b/l, no wheezing/rhonchi/rales Abd: soft, nontender, +BS x4 Ext: no clubbing/cyanosis/edema Neuro: Alert, no focal deficits, moves all extremities, Skin: warm/dry Medical - PN: Obj Da - Labs CBC & Chem 7: 08/08/18 07:22 08/07/18 04:00 Labs: Abnormal Lab Results 08/08/18 08/07/18 08/07/18 03:45 04:00 04:00 WBC RBC Hgb Hct Seg Neutrophils % Lymphocytes % PT 23.8 H INR 2.2 H VBG Lactic Acid Carbon Dioxide 19 L BUN 31 H Creatinine Calcium 8.0 L Phosphorus 2.4 L GGT 43 H C-Reactive Protein 31.9 H Urine Protein Urine Occult Blood Urine RBC Urine WBC 08/07/18 08/07/18 08/06/18 04:00 04:00 13:22 WBC 18.0 H RBC 3.52 L Hgb 11.3 L Hct 33.9 L Seg Neutrophils % 82 H Lymphocytes % 10 L PT 29.9 H INR 2.9 H VBG Lactic Acid Carbon Dioxide BUN Creatinine Calcium Phosphorus GGT C-Reactive Protein 17.1 H Urine Protein Urine Occult Blood Urine RBC Urine WBC 08/06/18 08/06/18 08/06/18 07:50 07:50 07:50 WBC RBC Hgb Hct Seg Neutrophils % Lymphocytes % PT 30.2 H INR 2.9 H VBG Lactic Acid 3.0 H Carbon Dioxide BUN Creatinine Calcium Phosphorus GGT C-Reactive Protein Urine Protein 100 A Urine Occult Blood 0.2 A Urine RBC 40 H Urine WBC 6 H 08/06/18 08/06/18 07:50 07:50 WBC RBC 3.83 L Hgb Hct Seg Neutrophils % 88 H Lymphocytes % 3 L PT INR VBG Lactic Acid Carbon Dioxide 21 L BUN 30 H Creatinine 1.2 H Calcium Phosphorus GGT C-Reactive Protein Urine Protein Urine Occult Blood Urine RBC Urine WBC Meds: Medications Acetaminophen (Tylenol) 650 mg PO Q6HP PRN PRN Reason: PAIN/FEVER > 101 Last Admin: 08/06/18 17:18 Dose: 650 mg Documented by: Albuterol/Ipratropium (Duoneb) 3 ml NEB Q4HP PRN PRN Reason: Shortness Of Breath Cefepime HCl (Maxipime) 2 gm IV Q12H [facility]; Protocol Last Admin: 08/07/18 21:28 Dose: 2 gm Documented by: Docusate Sodium (Colace) 100 mg PO BID [facility] [place] Last Admin: 08/07/18 21:28 Dose: Not Given Documented by: Potassium Chloride 40 meq/ (Dextrose) 520 mls @ 130 mls/hr IV UD PRN PRN Reason: Potassium < 3 Magnesium Sulfate (Magnesium Sulfate) 2 gm in 50 mls @ 50 mls/hr IV UD PRN PRN Reason: Magnesium </= 1.6 Metronidazole (Flagyl) 500 mg in 100 mls @ 100 mls/hr IV Q8H [facility] [place]; Protocol Last Admin: 08/08/18 05:49 Dose: 100 mls/hr Documented by: Isosorbide Mononitrate (Monoket) 20 mg PO DAILY [facility] [place] Last Admin: 08/07/18 10:17 Dose: 20 mg Documented by: Lactulose (Cephulac) 10 gm PO DAILYP PRN PRN Reason: Constipation Levothyroxine Sodium (Synthroid) 25 mcg PO QAMAC [facility] [place] Last Admin: 08/08/18 06:56 Dose: 25 mcg Documented by: Metoclopramide HCl (Reglan) 10 mg IV Q6HP PRN PRN Reason: Nausea And Vomiting Metoprolol Succinate (Toprol Xl) 25 mg PO DAILY [facility] [place] Last Admin: 08/07/18 10:19 Dose: 25 mg Documented by: Ondansetron HCl (Zofran) 4 mg IV Q4HP PRN PRN Reason: Nausea And Vomiting Netarsudil Mesylate ([Rhopressa] 2.5 Ml) 1 dose OU DAILY [facility] [place] Last Admin: 08/07/18 10:18 Dose: 1 dose Documented by: Polyethylene Glycol (Miralax) 17 gm PO DAILYP PRN PRN Reason: Constipation Potassium Chloride (Kdur) 40 meq PO UD PRN PRN Reason: Potassium is 3-3.5 Potassium Chloride (Kdur) 40 meq PO UD PRN PRN Reason: Potassium < 3 Senna (Senokot) 2 tab PO HSP PRN PRN Reason: Constipation Sertraline HCl (Zoloft) 50 mg PO DAILY [facility] [place] Last Admin: 08/07/18 10:17 Dose: 50 mg Documented by: Sodium Chloride (Saline Flush) 10 ml IV Q8 [facility] [place] Last Admin: 08/08/18 05:50 Dose: 10 ml Documented by: Trazodone HCl (Desyrel) 25 mg PO HSP PRN PRN Reason: Sleep Last Admin: 08/07/18 21:58 Dose: 25 mg Documented by: Warfarin Sodium (Coumadin Per Pharmacy) 1 order PO [facility] Medical - PN: A/P - Time Spent With Patient Total time spent is greater than 50% in coordination of care (as documented) at patient's floor/unit and/or counseling patient: - Narrative A/P Narrative: A: *Sepsis: ?Etiology, could be source given her dysuria however her urinalysis is not impressive by any means -lactate acidosis resolved; afebrile -REsolved *Bactermia (GNB) from 1 blood draw *Orthostatic hypotension: improved *Volume depletion: improving *Generalized weakness: *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
[2018-08-08 08:17] LABS: Hematocrit 36.3 % (36.0-48.0); Hemoglobin 12.2 g/dL (12.0-15.0); Mean Cell Volume 95.3 fL (80.0-100.0); Mean Corpuscular HGB Conc 33.6 g/dL (31.0-36.0); Platelet Count 196 K/mcL (140-440); RBC 3.81 M/mcL (4.00-5.20); Red Cell Distribution Width 13.7 % (11.5-14.5); WBC 10.1 K/mcL (4.5-11.0)
[2018-08-08 08:43] LABS: ALT/SGPT 20 U/l (0-40); AST/SGOT 30 U/l (0-37); Albumin 3.5 gm/dL (3.2-5.2); Albumin/Globulin Ratio 1.2 (1.0-2.3); Alkaline Phosphatase 46 U/L (39-117); Bilirubin,Direct < 0.2 mg/dL (0.0-0.3); Bilirubin,Total 0.4 mg/dL (0.0-1.0); Blood Urea Nitrogen 19 mg/dl (8-23); Calcium 8.9 mg/dl (8.6-10.4); Carbon Dioxide 21 mmol/L (22-30); Chloride 104 mmol/L (96-108); Globulin 2.9 gm/dL (2.2-3.7); Glomerular Filtration Rate 65; Glucose 110 mg/dL (70-105); Lactate Dehydrogenase 243 U/L (94-250); Magnesium 1.9 mg/dL (1.6-2.5); Phosphorous 1.8 mg/dL (2.7-4.5); Sodium 138 mmol/L (133-145); Triglycerides 205 mg/dl (<150); Uric Acid 7.3 mg/dL (2.5-8.0)
[2018-08-08 08:56] LABS: Band Neutrophils % 1 % (0-10); Eosinophils % (Manual) 1 % (0-7); Lymphocytes % 7 % (15-49); Monocytes % (Manual) 14 % (1-12); Platelet Estimate NORMAL (NORMAL); RBC Morphology NORMAL (NORMAL); Segmented Neutrophils % 77 % (38-78)
[2018-08-08 08:57] LABS: Dohle Bodies FEW (NONE SEEN)
[2018-08-08] MEDS: SERTRALINE 50 MG TABLET PO SCH (10:10)
[2018-08-08] MEDS: NETARSUDIL MESYLATE OU SCH (10:10)
[2018-08-08] MEDS: ISOSORBIDE MONONITRATE 20 MG TABLET PO SCH (10:10)
[2018-08-08] MEDS: amLODIPine 10 MG TABLET PO SCH (10:10)
[2018-08-08] MEDS: METOPROLOL SUCCINATE 25 MG TAB.XL.24H PO SCH (10:10)
[2018-08-08] MEDS: LISINOPRIL 10 MG TABLET PO SCH (10:10)
[2018-08-08] MEDS: CEFEPIME 2 GM VIAL IV SCH ×2 (10:11→21:40)
[2018-08-08] MEDS: DOCUSATE SODIUM 100 MG CAPSULE PO SCH ×2 (10:12→21:41)
[2018-08-08] MEDS: NEUTRA PHOS 1 PACKET PO SCH ×3 (10:39→21:41)
--- NOTE | 2018-08-08 11:12 | Discharge Summary ---
Medical - DS: Prov Patient information: Note initiated : 08/08/18 at 11:08 am Service Date, if different from initiated Date: [] Patient: Sadi Her 87 y/o F admitted on 08/06/18 for fever, nausea. Chief Complaint: [] Date of admission: 08/06/18 14:16 Discharge date: 08/09/18 Primary care physician: Baltazar Marcum Consults: 08/06/18 12:42 Consult to Physician [CONS] Stat Comment: Consulting Provider: Donavan Haley Reason For Exam: Physician to Consult Medical - DS: Meds - Discharge Medications Prescriptions: Ciprofloxacin [Cipro] 500 mg PO BID #12 tab Lactobacillus [Culturelle] 1 cap PO BID #40 cap Active and Home Medications: Home Medications Isosorbide Mononitrate [Monoket] 20 mg PO DAILY 11/14/16 [History Confirmed 08/06/18 Last Taken Unknown] Levothyroxine Sodium [Tirosint] 25 mcg PO DAILY 11/14/16 [History Confirmed 08/06/18 Last Taken Unknown] Sertraline HCl [Zoloft] 50 mg PO DAILY 11/14/16 [History Confirmed 08/06/18 Last Taken Unknown] Lisinopril [Zestril] 10 mg PO DAILY 07/09/18 [History Confirmed 08/06/18 Last Taken Unknown] Naproxen (Pp) [Aleve 220Mg (Pp)] 220 mg PO DAILY 07/09/18 [History Confirmed 08/06/18 Last Taken Unknown] Psyllium Husk [Metamucil] 2 cap PO DAILY 07/09/18 [History Confirmed 08/06/18 Last Taken Unknown] Warfarin [Coumadin] 6 mg PO SUMOTUTHFRSA@1400 07/09/18 [History Confirmed 08/06/18 Last Taken Unknown] Acetaminophen [Tylenol Arthritis] 650 mg PO BID 08/06/18 [History Confirmed 08/06/18 Last Taken Unknown] Denosumab [Prolia] 60 mg SQ UD 08/06/18 [History Confirmed 08/06/18 Last Taken Unknown] Metoprolol Succinate 25 mg PO DAILY 08/06/18 [History Confirmed 08/06/18 Last Taken Unknown] Netarsudil Mesylate [Rhopressa] 2.5 ml OP HS 08/06/18 [History Confirmed 08/06/18 Last Taken Unknown] Warfarin [Coumadin] 1 mg PO WE@1400 08/06/18 [History Confirmed 08/06/18 Last Taken Unknown] amLODIPine BESYLATE [Norvasc] 10 mg PO DAILY 08/06/18 [History Confirmed 08/06/18 Last Taken Unknown] traZODone HCL [Trazodone HCl] 25 mg PO HSP PRN 08/06/18 [History Confirmed 08/06/18 Last Taken Unknown] Medical - DS: Hosp Hospital course: Mr. Her is a 87 year old F Ms. Her is a 87 year old F Who presents the ED with shaking fever chills during the night vague abdominal discomfort. Patient states that over the past 3 weeks especially yesterday she had become more weak and developed fevers with shaking chills. She had some nausea. She has some abdominal achy discomfort, not pain per the patient, in the upper quadrants. States she fell about 3 weeks ago onto her right knee Denies any sick contacts denies any respiratory complaints denies any diarrhea other than one episode in the ED, her bowel vomit earlier this morning was soft to firm. She does complain of dysuria. In the ED she was tachycardic and tachypneic and developed hypotension when she got up to go the bathroom. She was febrile. No respiratory issues and chest x- ray was okay. Abdominal injury imaging including CT abdomen pelvis and ultrasound showed some gallstones but no cholecystitis and no other abdominal pathology that was acute. She is given 3 L of IV fluid between EMS in the ED. Last blood pressure is 111/46. The lowest was 84/41 after getting up to go to the bathroom. She denies any ulcers or wounds on her skin. 08/07 Feeling better. Slept well. No new complaints. No overnight events. Blood culture with gram negative bacillus and one blood draw. 08/08 Doing well. No new complaints. No overnight events. Working well physical therapy 08/09 Doing well. No overnight events. Stable discharge. Like cultures finalized with E. coli pansensitive. Transitioning to p.o. Cipro. Stable for discharge Discharge diagnosis: Sepsis suspected be source gram-negative bacteremia Secondary discharge diagnosis: Orthostatic hypotension volume depletion generalized weakness chronic kidney disease hypothyroidism hypertension history of DVT depression anxiety - Time Spent with Patient Total time spent providing and/or coordinating discharge services: Greater than 30 minutes Medical - DS: Exam - Constitutional Vitals: Vital Signs Temp Pulse Resp BP BP Pulse Ox 08/08/18 07:15 98.4 F 24 H 178/75 98 08/08/18 07:00 79 18 93 08/08/18 04:11 97.8 F 86 20 150/65 94 08/07/18 23:49 98.3 F 88 20 151/59 93 08/07/18 19:59 97.9 F 80 22 158/63 92 08/07/18 16:00 97.7 F 90 18 152/69 96 08/07/18 12:00 97.3 F 85 18 145/66 94 Intake and Output 08/07/18 08/08/18 08/08/18 21:59 05:59 13:59 Intake Total 1710 220 100 Output Total 1000 625 250 Balance 710 -405 -150 Intake: IV 100 100 100 Oral 1610 120 Output: Void Amount 1000 625 250 Other: Meal Dinner Percent of Meal Consumed 100% Feeding Ability Assist with Tray Set Up Urine Appearance Clear Clear Urine Color Bright Yellow Bright Yellow Bright Yellow Urine Odor Normal Normal Normal Stool Size Small Stool Color Brown Stool Consistency Soft Loose # Bowel Movements 1 Weight 78.018 kg Medical - DS: Data Labs on day of discharge: Labs from last 24 hours 08/08/18 08/08/18 08/08/18 07:22 07:22 07:22 WBC RBC Hgb Hct MCV MCH MCHC RDW Plt Count MPV Total Counted Seg Neutrophils % Band Neutrophils % Lymphocytes % Monocytes % (Manual) Eosinophils % (Manual) WBC Morphology Dohle Bodies Platelet Estimate RBC Morphology PT INR Sodium 138 Potassium 4.0 Chloride 104 Carbon Dioxide 21 L Anion Gap 13.0 BUN 19 Creatinine 0.8 GFR Calculation 65 Glucose 110 H Uric Acid 7.3 Calcium 8.9 Phosphorus 1.8 L Magnesium 1.9 Total Bilirubin 0.4 Direct Bilirubin < 0.2 GGT 41 H AST 30 ALT 20 Alkaline Phosphatase 46 Lactate Dehydrogenase 243 C-Reactive Protein 21.4 H Total Protein 6.4 Albumin 3.5 Globulin 2.9 Albumin/Globulin Ratio 1.2 Triglycerides 205 H Procalcitonin 38.50 08/08/18 08/08/18 07:22 03:45 WBC 10.1 RBC 3.81 L Hgb 12.2 Hct 36.3 MCV 95.3 MCH 32.0 MCHC 33.6 RDW 13.7 Plt Count 196 MPV 8.0 Total Counted 100 Seg Neutrophils % 77 Band Neutrophils % 1 Lymphocytes % 7 L Monocytes % (Manual) 14 H Eosinophils % (Manual) 1 WBC Morphology Abnorm A Dohle Bodies Few A Platelet Estimate Normal RBC Morphology Normal PT 23.8 H INR 2.2 H Sodium Potassium Chloride Carbon Dioxide Anion Gap BUN Creatinine GFR Calculation Glucose Uric Acid Calcium Phosphorus Magnesium Total Bilirubin Direct Bilirubin GGT AST ALT Alkaline Phosphatase Lactate Dehydrogenase C-Reactive Protein Total Protein Albumin Globulin Albumin/Globulin Ratio Triglycerides Procalcitonin Preliminary micro results at discharge 08/06/18 07:59 Blood Culture - Preliminary Blood 08/06/18 08:03 Blood Culture - Preliminary Blood Gram negative bacillus Medical - DS: A/P - Patient/Caregiver Discharge Instructions Activity: as per physical therapy Diet: Regular Diet Prescriptions: Lactobacillus [Culturelle] 1 cap PO BID #40 cap - Follow up Plan Follow up with: Baltazar Marcum MD [Primary Care Provider] - Disposition: [facility] Prognosis: Fair Rehab Potential: Fair Overall status at discharge: patient is back to baseline
[2018-08-08] MEDS ORDERED: WARFARIN 3 MG TABLET PO ONE (14:00)
[2018-08-08] MEDS: ACETAMINOPHEN 325 MG TABLET PO PRN ×2 (14:44→21:59)
[2018-08-08] MEDS: traZODone HCL 50 MG TABLET PO PRN (22:12)
[2018-08-09] MEDS: metroNIDAZOLE 500 MG/100 ML BAG IV SCH (05:19)
[2018-08-09] MEDS: 0.9 % SODIUM CHLORIDE 10 ML SYRINGE IV SCH (05:19)
[2018-08-09 05:49] LABS: Prothrombin Time 22.8 sec (11.9-14.5)
[2018-08-09] MEDS: LEVOTHYROXINE 25 MCG TABLET PO SCH (07:28)
[2018-08-09] MEDS ORDERED: CIPROFLOXACIN 500 MG TABLET PO ONE (08:54)
[2018-08-09] MEDS ORDERED: LACTOBACILLUS 1 CAPSULE PO SCH (09:00)
[2018-08-09] MEDS: SERTRALINE 50 MG TABLET PO SCH (09:09)
[2018-08-09] MEDS: METOPROLOL SUCCINATE 25 MG TAB.XL.24H PO SCH (09:09)
[2018-08-09] MEDS: LISINOPRIL 10 MG TABLET PO SCH (09:09)
[2018-08-09] MEDS: ISOSORBIDE MONONITRATE 20 MG TABLET PO SCH (09:09)
[2018-08-09] MEDS: CEFEPIME 2 GM VIAL IV SCH (09:09)
[2018-08-09] MEDS: ACETAMINOPHEN 325 MG TABLET PO PRN (09:10)
[2018-08-09] MEDS: DOCUSATE SODIUM 100 MG CAPSULE PO SCH (09:11)
[2018-08-09] MEDS: amLODIPine 10 MG TABLET PO SCH (09:11)
[2018-08-09] MEDS: NETARSUDIL MESYLATE OU SCH (09:12)
[2018-08-09] MEDS ORDERED: WARFARIN 3 MG TABLET PO ONE (11:45)
== END 2018-08-09 12:30 | DRG 872 ==
LOC: ED 07:33 → ICU 14:16
PROVIDERS: ADMIT Internal Medicine; ATTEND Internal Medicine